=== PATIENT | female | born 1980 | race Native Hawaiian/Other Pacific Islander ===

== ENCOUNTER 2020-10-11 13:52 | Outpatient (CLI) | payer OTHER | END 2020-10-11 22:46 | disposition home or self-care (01) | LOC: RESP 13:52 | PROVIDERS: ATTEND Nurse Practitioner Family | DX: M35.01 Sjogren syndrome with keratoconjunctivitis (principal); M62.830 Muscle spasm of back; R06.02 Shortness of breath; R53.83 Other fatigue ==